=== PATIENT | male | born 1940 | race Caucasian/White ===

== ENCOUNTER → 2016-11-10 | Day surgery (SDC) | payer MEDICARE, OTHER ==
[~2016-11-10] VITALS: Ht 170.2 cm; Wt 84.8 kg
[~2016-11-10] MED LIST: ASPI-973 PO; ATOR40TA69 PO; CLOP75TA28 PO; ISOS30TA4 PO; Ketamine 10 mg/mL 20 mL Inj ONE; Lactated Ringer's 1,000 ML IV ONE; Lactated Ringer's 1,000 ML IV SCH; MULT-1018 PO; MetoCLOpramide 5 mg/mL 2 mL Inj IVPUSH PRN; OMEP40CA36 PO; Ondansetron 2 mg/mL 2 mL Inj IVPUSH PRN; Propofol 10,000 mCg/mL 20 mL Inj ONE; TOP100 PO; VITA200C61 PO; fentaNYL-PF 50 mCg/mL 2 mL Inj ONE
--- NOTE | 2016-11-10 07:42 | PCM.HPANE ---
Patient Data Surgeon Admitting Provider: Attending Provider:Calvin Garcia MD Primary Care Physician:Dallas Vidal MD Other Provider:Shama Rodriguezingham Anesthesia Reason for Visit Diarrhea Ht/WT & BMI Body Mass Index Allergies Coded Allergies: No Known Drug Allergies (Verified Allergy, Unknown, 11/06/16) Past Anesthesia History Anesthesia History: Denies:: Abnormal Airway, Anesthesia Reactions (POSSIBLE ADVERSE REACTION TO DEMEROL), Difficult Intubation Diabetes History Hx Diabetes?: No MRSA MRSA: No Medications Hypertension Medication: No Home Meds Incl Beta Shi: Yes Date Beta Shi Taken: Nov 09, 2016 Time Beta Shi Taken: 08:00 Previous Beta Shi Dose >24: Give Dose Perioperatively Reported Medications Vitamin E (Dl,Tocopheryl Acet) (Vitamin E)200 Unit [id number] Unit PO DAILY 11/06/16 Metoprolol Succinate ER (Toprol XL)100 Mg Pbbjrr038 Mg PO DAILY Ref 0 11/06/16 Multivitamin (Multi Vitamin Daily)1 Each Tablet1 Each PO DAILY 30 Days Ref 0 11/06/16 Clopidogrel 75 Mg Cnogal50 Mg PO DAILY Ref 0 11/06/16 Atorvastatin Calcium 40 Mg Pnogly57 Mg PO DAILY Ref 0 10/07/15 Aspirin 81 Mg Jpsmem68 Mg PO DAILY Ref 0 10/07/15 Discontinued Reported Medications Omeprazole 40 Mg Capsule.dr40 Mg PO DAILY Ref 0 11/06/16 Isosorbide MN ER 30 Mg Tab.er.24h30 Mg PO DAILY 11/06/16 Omeprazole 40 Mg Capsule.dr40 Mg PO DAILY Ref 0 10/08/15 Carvedilol 3.125 Mg Tablet3.125 Mg PO BID Ref 0 10/07/15 History History of ENT Problems?: Yes HEENT History: Positive for:: Sinus Problem (DRAINAGE) Denture Type: None Teeth Condition: Within Normal Limits Hx of Heart Problems?: Yes Cardiovascular History: Positive for:: Chest Pain (NEW SINCE MAY, WITH EXERTION) Coronary Artery Disease Hx of Respiratory Problem?: No Respiratory History: Denies:: Asthma COPD Chest Surgery Cough Dyspnea Emphysema Hemoptysis Oxygen Administration Pneumonia Pulmonary Embolism Tuberculosis Use of C-PAP Machine Use of Inhalers / NEBS Hx Neurologic Problems?: No Hx of GI Problems?: Yes Hx of Problems?: No HX of Peritoneal Dialysis: No Male Hx: Denies:: Prostate Problems Scrotal Mass Testicular Surgery Hx Musculoskeletal Problems?: No Hx of Psycho/Social Problems?: No Hx Surgeries?: Yes (SINUS SURGERY) Hx Any Other Health Problems?: Yes Other History: Positive for:: Hospitalization (WITH INJURY) Denies:: Cancer Thyroid Disease History Blood Transfusions: Denies:: Blood Transfuse Reaction Blood Transfusions Hx Diabetes: No Hx Alcohol Use: YesHx Substance Use: NoHave You Smoked inLast 12 mo: No Stop/Bang Treated for Sleep Apnea?: No Do You Have a CPAP Machine?: No Risk Assessment Category Category 1A: Patient has history of documented sleep apnea, and HAS NOT received any narcotic, sedative or anesthesia administration during this stay. Category 1B: Patient has history of documented sleep apnea, and HAS received any narcotic , sedative or anesthesia administration during this stay Category 2: Patient has SUSPECTED Obstructive Sleep Apnea, and HAS received any narcotic , sedative or anesthesia administration during this stay. Category 3: Patient has SUSPECTED Obstructive Sleep Apnea and HAS NOT received narcotic, sedative or anesthesia administration during this stay. Category 4: Outpatient in Procedural Areas with known sleep apnea or who screen positive for High Risk via the STOP/BANG questionnaire. Exam Exam General Appearance: Alert, Oriented X3, Cooperative, No Acute Distress HEENT/AIRWAY: MP 2 Lungs: Clear to Auscultation, Normal Air Movement Heart: Exam Unremarkable, Regular Rate/Rhythm, No Murmurs/Rubs/Gallops Plan Impression Patient chart reviewed, patient interviewed and anesthestic plan with risks, benefits, and alternatives discussed, and informed consent obtained. 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
[2016-11-10 10:43] VITALS: BP 152/89; PULSE 69; RESP 16; O2SAT 97
[2016-11-10 12:26] VITALS: BP 95/60; PULSE 62; RESP 11; O2SAT 90
[2016-11-10 12:36] VITALS: BP 101/68; PULSE 53; RESP 11; O2SAT 95
[2016-11-10 12:40] VITALS: BP 112/81; PULSE 68; RESP 12; O2SAT 94
--- NOTE | 2016-11-10 14:59 | ENDO ---
[address] [address] ENDOSCOPY PROCEDURE PATIENT: ZEYAD GUILLEN : 1940 MR#: [id number] ADMIT: 11/10/2016 JOB ID: [id number] DATE: 11/10/2016 PRIMARY PROVIDER: Dallas Vidal M.D. PROCEDURE: Colonoscopy with hot snare polypectomy, cold forceps polypectomy. INDICATIONS: A 76-year-old male with chronic diarrhea of uncertain etiology. EQUIPMENT: PCF H 190 L. SEDATION: Monitored anesthesia as provided by Dr. Jason Reyes. COMPLICATIONS: None identified. BOWEL PREPARATION: Fair, adequate exam. PROCEDURE INFORMATION: After the risks and benefits were explained, written and verbal informed consent was obtained. The patient was brought into the endoscopy suite and placed into the left lateral decubitus position. Sedation was achieved using the above-stated medications with the addition of oxygen via nasal cannula. A digital rectal examination disclosed mild internal hemorrhoids. No other pathology was appreciated. The scope was introduced into the rectum and advanced under direct visualization to the level of the cecum, as identified by the appendiceal orifice and ileocecal valve. The scope was slowly withdrawn to carefully examine the mucosa for any defects or lesions. Multiple direct views were made through the dentate line for exclusion of pathology. The colon was decompressed and the scope removed from the patient, who tolerated the procedure well. FINDINGS: No proctitis, no colitis. Terminal ileum was interrogated and appeared visually normal. There was a small polyp in the ascending colon, removed with cold forceps. Random colon biopsies were taken for exclusion of microscopic disease. In the rectosigmoid there was a challenging sessile polyp right at the rectosigmoid junction. This was removed by a combination or piecemeal hot snare polypectomy and it was cleaned up with cold forceps. It appeared to have been excised. Maximum size of this polyp was perhaps about a centimeter or so. ENDOSCOPIC DIAGNOSIS: 1. Colon polyps. 2. Hemorrhoids. RECOMMENDATIONS: 1. Await histopathology. 2. Repeat colonoscopy in three years.
--- NOTE | 2016-11-11 07:26 | PCM.ANEP1 ---
Post Anesthesia PACU Phase 1 Assessment Level of Alertness: Awake, talking APPIAH's with Equal Strength: Yes Pain: No Nausea or Vomiting: No CV Function & Hydration Stable: Yes Airway Device: none Lungs: Clear to Auscultation, Normal Air Movement Dermatome Level: Full Sensation PACU Phase 2 Assessment Complications: No Follow up Care: No Patient Instructions Provided: N/A Jason Reyes MD Nov 11, 2016 07:25
--- NOTE | 2016-11-11 14:19 | PATH ---
SURGICAL PATHOLOGY Attending Physician:Rosa Wells CASE STATUS: Signed Out PATIENT NAME: ZEYAD GUILLEN PID: [id number] : 1940 DATE COLLECTED:11/10/2016 18:37 SPECIMEN: 1: Colon, Polyp 2: Colon, Biopsy 3: Colon, Polyp CLINICAL HISTORY: 1). ASCENDING COLON POLYP X 1 2). RANDOM COLON BIOPSY 3). RECTO-SIGMOID POLYP X 1 FINAL DIAGNOSIS: 1. Ascending Colon, Polyp, Biopsy: Superficial portion of colorectal mucosa with a lymphoid aggregate, and no diagnostic abnormality. Additional levels are pending; results will be reported as an addendum. 2. Random Colon Biopsies: Superficial portions of colorectal mucosa with no diagnostic abnormality. Negative for active, chronic and microscopic colitis. Negative for dysplasia and malignancy. 3. Rectosigmoid Polyp, Biopsy: Tubular adenoma; negative for high-grade dysplasia. ICD10: K63.5 GROSS DESCRIPTION: The specimen is received in three formalin filled containers labeled with the patient's name. 1). The specimen is labeled "ascending colon polyp x1" and consists of a 0.2 x 0.2 x 0.2 CM portion of tissue which is entirely submitted in cassette 1A. 2). The specimen is labeled "random colon" and consists of 2 portions of tissue which aggregate to 0.2 x 0.2 x 0.2 CM. The specimen is entirely submitted in cassette 2A. 3). The specimen is labeled "recto-sigmoid polyp x1" and consists of a 0.6x 0.6 x 0.5 CM portion of tissue which is entirely submitted in cassette 3A. 11/10/2016DC ICD-9 CODES: CPT CODES: 1: 92940 2: 50688 3: 38559 PROCEDURE/ADDENDA: Addendum SPI Addendum Diagnosis {Not Entered} Addendum Comment Part 1: Additional step sections of the ascending colon polyp are examined. There are subtle surface hyperplastic changes. There is no evidence of dysplasia/adenoma. Electronically Signed Out Kei Fontanez MD, Ph.D. Electronically Signed Out Jeanne Magallon MD [facility] Pathology [facility] [address] [place] [address] Technical component performed at [facility], [address], [place], [address]
== END | disposition home or self-care (01) ==
LOC: END 00:19
PROVIDERS: ATTEND Internal Medicine Gastroenterology
DX: R19.7 Diarrhea, unspecified (principal); D12.7 Benign neoplasm of rectosigmoid junction; K64.8 Other hemorrhoids; K63.5 Polyp of colon; I25.10 Atherosclerotic heart disease of native coronary artery without angina pectoris; Z95.5 Presence of coronary angioplasty implant and graft; Z79.82 Long term (current) use of aspirin
CPT/HCPCS: 45380; 45385; 88305; J2250; J2704; J3010; J7120